=== PATIENT | male | born 1950 | race Caucasian/White ===

== ENCOUNTER 2024-05-23 10:03 | Observation (INO) ==
--- NOTE | 2024-04-16 13:05 | PAT Medication Instructions ---
Medication Instructions Date of Service April 16, 2024 Home Medications Medication Instructions Recorded hydrochlorothiazide 25 mg tablet 25 mg PO QAM #90 tabs 08/07/23 famotidine 20 mg tablet 20 mg PO QAM #90 tabs 03/27/24 (Zantac-360 (famotidine)) tramadol 50 mg tablet 100 mg (2 x 50 mg) PO BID PRN pain 03/31/24 #120 tabs melatonin 5 mg tablet 10 mg PO HS ibuprofen 200 mg tablet (Advil) 200 mg PO Q6H PRN Pain diphenhydramine HCl 25 mg capsule (Benadryl) 25 mg PO HS hydrochlorothiazide 25 mg tablet 25 mg PO QAM famotidine 20 mg tablet (Zantac-360 (famotidine)) 20 mg PO QAM tramadol 50 mg tablet 100 mg (2 x 50 mg) PO BID PRN pain ezetimibe 10 mg tablet (Zetia) 10 mg PO QPM glucosamine sulf dipot chlr,msm,chond 550 mg-C 30 mg-millicent 1 mg capsule (Glucosamine Chondroitin) 1 cap PO QAM lisinopril 40 mg tablet 40 mg PO QAM prednisone 10 mg tablet 10 mg PO Q2D Continue as directed prednisone 10 mg tablet 10 mg PO Q2D ASK your surgeon for instructions ibuprofen 200 mg tablet (Advil) 200 mg PO Q6H PRN Pain STOP taking 2 weeks before surgery glucosamine sulf dipot chlr,msm,chond 550 mg-C 30 mg-millicent 1 mg capsule (Glucosamine Chondroitin) 1 cap PO QAM DO NOT take the morning of surgery hydrochlorothiazide 25 mg tablet 25 mg PO QAM lisinopril 40 mg tablet 40 mg PO QAM Take morning of surgery With a small sip of water, OTHERWISE NOTHING TO EAT OR DRINK AFTER MIDNIGHT: famotidine 20 mg tablet (Zantac-360 (famotidine)) 20 mg PO QAM tramadol 50 mg tablet 100 mg (2 x 50 mg) PO BID PRN pain (if needed) Take evening before surgery melatonin 5 mg tablet 10 mg PO HS diphenhydramine HCl 25 mg capsule (Benadryl) 25 mg PO HS tramadol 50 mg tablet 100 mg (2 x 50 mg) PO BID PRN pain (if needed) ezetimibe 10 mg tablet (Zetia) 10 mg PO QPM Other Notes If you have any questions please call us at [phone] or [phone] or [phone] or [phone]
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
[~2024-05-23 10:03] MED LIST: BUPIVACAINE 0.5 % 5 MG/1 ML PF 10ML VIAL ONE; MIDAZOLAM HCL 1 MG/ML 2ML VIAL ONE; fentaNYL citrate PF 100 MCG/2 ML VIAL ONE
[2024-05-23] MEDS: LR 60ML/HR IV SCH (11:05)
[2024-05-23] MEDS: LR 15ML/HR IV SCH (11:39)
[2024-05-23] MEDS: ACETAMINOPHEN 500 MG TAB PO SCH (11:39)
[2024-05-23] MEDS ORDERED: ePHEDrine sulfate 50 MG/ML AMP IV PRN (12:05)
[2024-05-23] MEDS ORDERED: HYDROmorphone INJ 1 MG/ML SYRINGE IV PRN (12:05)
[2024-05-23] MEDS ORDERED: ATROPINE SULFATE 0.1 MG/ML 10ML SYR IV PRN (12:05)
--- NOTE | 2024-05-23 12:36 | History & Physical Bridge Note ---
Date of Service May 23, 2024 History & Physical Bridge Note I have examined the patient, reviewed the History & Physical and in the interval since the performance of the History & Physical I have noted the following changes of clinical significance: no changes noted
[2024-05-23] MEDS: TRANEXAMIC ACID 1,000 MG **IV Pre-op IV SCH (12:42)
[2024-05-23] MEDS: ceFAZolin 2000MG 2,000 MG/15 ML SYR IV SCH ×2 (13:06→20:28)
[2024-05-23] MEDS ORDERED: HYDROCORTISONE SOD SUCCINATE 100 MG/2 ML VIAL ONE (13:51)
[2024-05-23] MEDS ORDERED: ePHEDrine sulfate 50 MG/5 ML SYR ONE (14:15)
[2024-05-23] MEDS ORDERED: PROPOFOL IV EMULSION 10 MG/ML 20 ML VIAL IV ONE (14:16)
[2024-05-23] MEDS ORDERED: ROCURONIUM BROMIDE 10 MG/ML 5 ML VIAL IV ONE (14:18)
[2024-05-23] MEDS ORDERED: LIDOCAINE 2% 2 ML VIAL/AMP(20MG/ML) INFIL ONE (14:18)
[2024-05-23] MEDS ORDERED: SUGAMMADEX SODIUM 200 MG/2 ML VIAL IV ONE (14:19)
[2024-05-23] MEDS ORDERED: PHENYLEPHRINE HCL 10 MG/ML VIAL ONE (15:42)
[2024-05-23] MEDS: VANCOMYCIN HCL 1000MG/20ML VIAL ONE (15:44)
[2024-05-23] MEDS: TRANEXAMIC ACID 1,000 MG **IV Intra-op IV SCH (16:18)
[2024-05-23] MEDS ORDERED: HYDROmorphone INJ 0.5 MG/0.5 ML SYR IV PRN (16:42)
[2024-05-23] MEDS ORDERED: MAGNESIUM HYDROXIDE SUSP 30 ML UDC PO PRN (16:42)
[2024-05-23] MEDS ORDERED: ONDANSETRON INJ 2 MG/ML 2 ML VIAL IV PRN (16:42)
[2024-05-23] MEDS ORDERED: ACETAMINOPHEN 1,000 MG/100 ML VIAL IV PRN (16:42)
[2024-05-23] MEDS ORDERED: diphenhydrAMINE Capsule 25 MG CAP PO PRN (16:42)
[2024-05-23] MEDS ORDERED: NALOXONE HCL 0.4 MG/1 ML VIAL/CARP IV PRN (16:42)
[2024-05-23] MEDS ORDERED: bisacodyL 10 MG SUPP PR PRN (16:42)
[2024-05-23] MEDS ORDERED: METOCLOPRAMIDE HCL INJ 5 MG/ML 2 ML VIAL IV PRN (16:42)
--- NOTE | 2024-05-23 16:52 | Operative Report ---
PG Post Operative Report Pre & Post Diagnosis Operation Date: 05/23/24 11:50 Pre-Op Diagnosis: Arthritis of Right Glenohumeral Joint, biceps tendinopathy Post-Op Diagnosis: Arthritis of Right Glenohumeral Joint, biceps tendinopathy I identified the patient and participated in the time-out.: Yes Procedure Operation Date: 05/23/24 11:50 Actual Procedures p Right Reverse Total Shoulder Arthroplasty, Biceps Tenodesis(Right) - Marcel Sigala MD Surgeon Marcel Sigala MD Chyron Operator Maide Vallejo PA-C Estimated Blood Loss 100 Findings See Below [employer] comprehensive reverse shoulder arthroplasty was performed: Stem17 mm micro, baseplate large augmented superior, [id number] mm standard, humeral tray40 mm standard +0 offset, poly36 mm +3, central screw 6.5 mm x 30 mm, all locking peripheral screws 4.75 x 15 mm, 4.75 x 25 mm, 4.75 x 35 mm, and 4.75 x 20 mm EXAMINATION UNDER ANESTHESIA: Preoperative exam under anesthesia revealed the followin degrees of forward flexion, 30 degrees external rotation at the side, 90 degrees of abduction, 30 degrees of external rotation and 10 degrees of internal rotation with the arm abducted. Postoperatively, range of motion parameters after implantation of prosthesis revealed a stable prosthesis with range of motion parameters as follows: 130 of forward flexion, 60 of external rotation at the side, 110 of abduction, 90 of external rotation with the arm abducted, 20 of internal rotation with the arm abducted. The patient's safe range of motion included the ability to get to the back of her head. Internal rotation to the belly without significant tension. Specimens Humeral head for pathology Drains none Anesthesia Type General Regional Complications none Disposition Accompanied Patient To Recovery: No Disposition: Recovery Room Description of Procedure The patient was identified in the preoperative holding area. The operative extremity was marked. Regional block was administered by Anesthesia. The patient was then brought to the operating room and placed supine. Preliminary time-out procedure was performed. All were in agreement. General endotracheal anesthesia was induced without any issues. The patient was sat up in around 40-45 degrees of inclination in the beachchair position. Exam under anesthesia was performed confirming the above findings. Preoperative antibiotics were administered. TXA was administered. Sequential compressive devices were placed on her bilateral lower extremities for DVT prophylaxis. Bony prominences were inspected, well-padded and free of any evidence for peripheral nerve compression. The operative upper extremity was then prepped and draped in a normal standard fashion, with use of the padded Pugh stand. Prior to incision, a second time- out procedure was performed confirming the patient, site, laterality and the procedure. All were in agreement. 1. Right shoulder open reverse total shoulder replacement with augmented glenoid baseplate with patient specific guide: A deltopectoral incision was utilized. Incision was carried out sharply and with electrocautery through the skin and subcutaneous tissues. The deltopectoral interval was developed. The cephalic vein was taken laterally. Subdeltoid space was developed bluntly. A deltoid brown retractor was placed to retract the deltoid laterally and superiorly. 1 cm of the superior border of the pectoralis major tendon insertion site was released in standard fashion to improve exposure. Clavipectoral fascia was removed with electrocautery. Extensive subacromial bursitis was encountered and this was completely removed with a Bovie. The lateral aspect of the conjoined tendon was then followed to its insertion site on the coracoid. The conjoined tendon was retracted medially. The biceps tendon was identified, enlarged consistent with tendinopathy. It was released from the sheath using a Bovie and followed up into the rotator interval. A tenodesis was performed to the pectoralis major tendon as will be discussed in further detail below. A sharp Hohmann retractor was then placed into the interval and into the joint. Subscapularis tendon was still present and attached on the lesser tuberosity. The articular surface of the humeral head could be appreciated. The subscapularis tendon was then tagged with #5 Ti-Cron sutures to gain control. The capsule with the subscapularis tendon was then released up the inferior humeral neck as one layer. The humeral head dislocated with successive extension and external rotation. Visualization of the humeral head revealed significant osteoarthritis and wear. The supraspinatus was absent. The greater tuberosity footprint was bare. The top of the humeral head was identified. A starting awl was used sound the humeral canal. The bone quality was moderate. We opted to set the retroversion of the humeral cut at around 30 degrees of retroversion to match [place] retroversion. The humeral head resection was then made in parallel fashion using the cutting guide. Sequential reaming was carried out up to a size 17 as the maximal stem size. Successive trial broaches were then broached up to a this reamer size, which gave us excellent press-fit. The trial stem was left in place. The metal manhole cover Was then placed to protect this cut surface during retraction for the glenoid. We then proceeded over to glenoid. An anterior glenoid neck retractor was placed. The MGHL and SGHL were released off of the muscular portion of the subscapularis being mindful of palpating and identifying the axillary nerve to make sure it was free of injury during releases. Next, the interval between the IGHL and the muscular portions of the subscapularis was identified. My finger was on the axillary nerve to protect it during releases. The IGHL was then released up to around the 7 o'clock position. A blunt retractor was then placed to retract the humerus posteriorly. A sharp Hohmann retractor was placed at the 12 o'clock position. The glenoid deformity was evaluated with assistance with the bone model. Extraneous capsulolabral tissue was dissected to reveal the bone anatomy. This confirmed our decision to proceed with preoperative virtual planning. The arm was placed around 30 degrees of flexion, 90 degrees of external rotation and 30 degrees of abduction to distract the humerus posteriorly. Labrum was circumferentially removed including the biceps tendon stump with a Bovie. A patient specific guide was used to place an initial guide pin, followed by the more superior pin. The patient specific guide was then removed. The custom reamer guide was placed on the superior pin and the reamer was brought down the central pin. Reaming was conducted based on the guide. Irrigation was used and we confirmed adequate reaming. The base protector was then fastened with a screw to protect the surface from the augment reamer. The augment reamer sufficiently removed the cartilage surface according to the preoperative plan. Copious irrigation was performed to irrigate out the joint. The planned glenoid baseplate and central threaded screw was then placed with excellent capture. Four peripheral locking screws were placed. The final construct appeared to be extremely strong as the entire glenoid and scapula moved together as one unit confirming excellent fixation of the baseplate. The trial glenosphere was placed to assess the offset needs. Next, the planned glenosphere was confirmed, opened, and set for offset on the back table. The glenosphere was then seated into the baseplate and impacted onto the johnson taper. A cornejo was used to test fixation, before resetting with additional malleting. The joint was then co piously irrigated. Humerus was then brought back into view with external rotation, deltoid brown retractor and multiple blunt Homans. A trial tray was then placed that would best accommodate the anatomy. The humerus was then reduced onto the glenoid with the arm in abduction and external rotation. The reduction was fairly easily and it felt that there was too much to be the right size. I upsized by 3 mm on the poly. This trial was then placed. The arm was taken through a physiologic range of motion. No evidence for impingement until extreme abduction and external rotation. There was some posterior humeral head osteophyte remained. This was resected using a rongeur. No evidence for kick off. No shuck. Thus, the trials would be a most appropriate for stability. The trial humeral component was removed. The final stem prosthesis was then brought onto the field. Final tray insert as well as the poly components were opened. Humeral canal was copiously irrigated. The final humeral component was then brought back on to the field and seated firmly into the humerus. Excellent press-fit was achieved. Final tray and polyethylene were then tamped onto the Johnson taper with excellent purchase. Fixation was tested manually. This completed the humeral component implantation. With the final components in place, humeral component was then reduced onto the glenosphere and final postoperative range of motion assessment was performed. Stability confirmed. This completed the open reverse total shoulder replacement. 2. Open biceps tenodesis: As dictated above, enlargement of the biceps tendon was noted consistent with tendinopathy. A tenodesis was opted. The tendon was released from the bicipital sheath using a Bovie and then tenodesed to the pectoralis major tendon using two #2 Fiberwire sutures in [id number] fashion. The tendon was then followed up as proximal as could be visualized and then tenotomized. Remaining stump was removed just proximal to the tenodesis site. This completed the open biceps tenodesis. The wound was copiously irrigated. The deltopectoral incision was closed with continuous #1 Vicryl suture. Subcutaneous tissues were closed with 0 and 2-0 Vicryl suture in buried interrupted fashion. The skin was closed with gennaro. The wound was dressed with xeroform, gauze, and ABD, contained by Fiorella. The patient was placed in a standard sling and turned over to the anesthesia team. The patient tolerated procedure well, was extubated in the operating room without complication, and transferred to the PACU in stable condition. DISPOSITION: The patient will remain in sling for a total of 4 weeks. Hand, wrist, and elbow range of motion exercises may be initiated. Formal therapy will be initiated starting with gentle active assisted range of motion. No strengthening will be permitted before 12 weeks. Physician prosthetics assistant attestation: Madie Vallejo PA-C was present and scrubbed for the duration of the case. Skilled assistance was essential to prepping/draping, patient positioning, retraction, and wound closure. I attest to the content of the Intraoperative Record and any orders documented therein. Any exceptions are noted below.
[2024-05-23] MEDS: fentaNYL citrate PF 100 MCG/2 ML VIAL IV PRN (17:07)
[2024-05-23] MEDS: ONDANSETRON INJ 2 MG/ML 2 ML VIAL IV PRN (17:13)
--- NOTE | 2024-05-23 17:20 | XRay Report ---
XR shoulder RT min 2V routine CLINICAL HISTORY: s/p right shoulder arthroplasty TECHNIQUE: 3 views of the right shoulder were obtained. Comparison: None available at the time of this dictation. FINDINGS: Patient is status post shoulder arthroplasty with expected postsurgical changes including soft tissue swelling and subcutaneous emphysema. No periarticular lucency or hardware fracture is seen. IMPRESSION: Expected postoperative appearance status post placement of shoulder arthroplasty. ACT 112: Negative or not required by law. Electronically signed by: Jaime Rodrigues M.D. 05/23/2024 5:19 PM
--- NOTE | 2024-05-23 17:28 | Anesthesiology Progress Note ---
Date of Service May 23, 2024 Anesthesia Post Procedure Vital Signs Vital Signs: Temp Pulse Resp BP Pulse Ox O2 Del Method O2 Flow Rate 05/23/24 17:25 69 17 145/71 H 96 Nasal Cannula 2 05/23/24 17:15 64 16 143/74 H 95 Nasal Cannula 2 05/23/24 17:05 67 17 131/70 93 Room Air 05/23/24 16:55 65 12 132/75 96 Room Air 05/23/24 16:45 64 17 142/72 H 98 Room Air 05/23/24 16:36 36.0 C L 67 16 155/78 H 99 Oxymask 8 05/23/24 10:47 36.7 C 62 20 133/86 99 Room Air Pain Intensity Right Shoulder: Pain Intensity: 4 Transfer of Care Handoff Completed per policy Notes Mental Status: alert / awake / arousable and participated in evaluation Patient Amnestic to Procedure: Yes Nausea / Vomiting: adequately controlled Pain: adequately controlled Airway Patency, RR, SpO2: stable & adequate BP & HR: stable & adequate Hydration State: stable & adequate Anesthetic Complications: no major complications apparent and Pt Satisfied with anesthetic care
[2024-05-23] MEDS ORDERED: IBUPROFEN 200 MG TAB PO PRN (17:55)
[2024-05-23] MEDS ORDERED: traMADol HCL 50 MG TABLET PO PRN (17:55)
[2024-05-23] MEDS: SODIUM CHLORIDE 0.9% 1,000 ML IV SCH (17:59)
[2024-05-23] MEDS: SENNA 8.6 MG TAB PO SCH (20:28)
[2024-05-23] MEDS: DOCUSATE SODIUM 100 MG CAP PO SCH (20:29)
[2024-05-23] MEDS: EZETIMIBE 10 MG TAB PO SCH (20:29)
[2024-05-23] MEDS: diphenhydrAMINE Capsule 25 MG CAP PO SCH (22:17)
[2024-05-23] MEDS: MELATONIN 3 MG TAB PO SCH (22:17)
[2024-05-24] MEDS: oxyCODONE HCL IR 5 MG TAB (IMMEDIATE RELEASE) PO PRN (03:55)
[2024-05-24] MEDS: lisinopril 40 MG TAB PO SCH (07:57)
[2024-05-24] MEDS: hydroCHLOROthiazide 25 MG TAB PO SCH (07:57)
[2024-05-24] MEDS: predniSONE 10 MG TABLET PO SCH (07:57)
[2024-05-24] MEDS: FAMOTIDINE 20 MG TAB PO SCH (07:58)
[2024-05-24] MEDS ORDERED: NON-FORMULARY MEDICATION (Glucos Sul 2kcl-Msm-Chond-C-Mn [Glucosamine Chondroitin] 550-30- PO SCH (09:00)
--- NOTE | 2024-05-24 09:19 | Discharge Summary ---
Date of Service May 24, 2024 Admission HPI (Per Admitting) 74-year-old male admitted for reverse shoulder replacement from longstanding symptoms of pain and loss of motion from right glenohumeral arthritis with significant glenoid deformity. He is also been treated for bicep tendinopathy. He wants to proceed with surgery that we have considered for some time. Admission Exam (Per Admitting) Right shoulder: No overlying skin lesions. Exam is unchanged. Constitutional WD/WN, vitals as above Respiratory normal respiratory effort; no respiratory distress Cardiovascular Extremities: normal capillary refill; no edema Chest (Breasts) Chest: normal inspection of chest Skin no rashes, warm and dry Psychiatric A+Ox3, euthymic affect Principal Diagnosis Same as "Discharge Diagnosis" noted below under Discharge Instructions. Discharge Exam RUE: Intact weak motor to the digits with partial sensation returning from the block. No sensation proximal to the elbow. Well-perfused. Dressing is clean and dry and intact. Constitutional WD/WN, vitals as above Respiratory normal respiratory effort; no respiratory distress Cardiovascular Extremities: normal capillary refill; no edema Chest (Breasts) Chest: normal inspection of chest Skin no rashes, warm and dry Psychiatric A+Ox3, euthymic affect Discharge Data Procedures Performed Operation Date: 05/23/24 11:50 Actual Procedures p Right Reverse Total Shoulder Arthroplasty, Biceps Tenodesis(Right) - Marcel Sigala MD Ordered Studies 05/23/24 05:00 US - OR guided needle placemen Routine Hospital Course (1) History of right shoulder replacement: (2) Tendinopathy of right biceps tendon: (3) Arthritis of right glenohumeral joint: Plan Admitted postoperatively to ensure performance of ADLs with PT and OT. On postop day 1 he was found to have controllable pain and ability to take care of himself. He was discharged to outpatient care with ongoing therapy. PG Care Time/CCT Total # of Minutes Spent Total Time Spent with Patient: Total time spent is greater than 50% in coordination of care (as documented) at patient's floor/unit and/or counseling patient: Discharge Plan Discharge Items Patient Disposition: Home - Self-Care Reason For Visit: Arthritis of Right Glenohumeral Joint, Arthropathy Discharge Diagnosis: Right shoulder arthritis and biceps tendinopathy Activity: Per Instructions section Non-emergency contact: Surgeon Call non-emergency contact if: you have any medication questions, your pain is not controlled and your temperature is above 101 Follow-up/Referrals: Verona John MD [Primary Care Provider] - Marcel Sigala MD [Surgeon] - Diet: Regular Addtl Attending Provider Instructions: Marcel Sigala M.D. [facility] [address], [place] [address] POSTOPERATIVE DISCHARGE INSTRUCTIONS SHOULDER ARTHROPLASTY Dressing Care: Leave the dressing in place for 3 days. After 3 days you may remove the dressing. If the incision is not draining, you do not have to re-cover the dressing. Sloan will be removed at your postop appointment. If there is a little bit of drainage or if the wound is bothersome with your clothing, cover the incision with a dry dressing. Do not use any ointments or topical medications unless directed by your surgeon. Do not submerse the incisions in water no pools, oceans, lakes, jacuzzis, bathtubs, etc for at least 3 weeks. Showering: After 3 days you may remove the dressing and shower normally. Allow soap and water to run over the incision and pat dry. Do not scrub or soak the incision. Activity and Therapy Recommendations: - If you are not using home therapy then Outpatient Physical Therapy should start about 3-5 days from your day of surgery. Therapy will last about 8-12 weeks. This can be set up on Sunday. - Wear your sling for 3 weeks, unless otherwise instructed. You may remove your sling to shower and to dress. You may rest out of sling, but it should be in place when you are up and moving around. - The shoulder replacement is very stable and you can use your hand while in the sling - You were shown a series of exercises in the hospital. Do these exercises daily including the exercises you were shown in physical therapy. - NO EXTERNAL ROTATION - do not reach out to your side. Pain Control: Use frequent ice to reduce amount of pain medications. Use for 30 minutes per hour. Do not leave in place longer than 30 minutes, especially when your block is in effect, to prevent frostbite or thermal injury. MEDICATIONS: 1. Antibiotic (Cedroxil): one tablet (500mg) twice daily for 10 days. 2. Opioid: Oxycodone (OxyIR) 1-2 tablet(s) orally every 4 hours for pain as needed. Use with Tylenol. Begin tapering OxyIR as soon as possible: reduce from 2 to 1 pills per dose, then spread out the doses over greater time intervals, then try to use only for therapy or for comfort while sleeping. Continue to use regular Tylenol until pain subsides. 3. Tylenol (325mg): 3 tablets every 8 hours orally. Regular dosing of Tylenol is an important part of your baseline pain control. Do not taper Tylenol until you have successfully tapered off of regular OxyIR. Do not take more than 3000mg of Tylenol per day. 4. Zofran 1 tablet orally every 6 hours as needed for nausea related to anesthesia, pain, and narcotic medications OVER THE COUNTER: Narcotics will cause constipation. Colace and or Miralax can help while you are taking oxycodone or other narcotics. 5. Colace (100mg): take 1-2 tabs twice daily to avoid constipation from OxyIR or other narcotics. 6. Miralax 1 tablespoon in a glass of water 2 times daily until normal bowel movements - Other medications may be prescribed for specific circumstances. If you have any questions, please call the office at . - Resume previous home medications unless otherwise instructed Follow-Up: 1. Ortho Clinic with Dr. Nolasco: You should be seen in 10-14 days. Please call immediately to schedule if you do not have an appointment. Pending Studies at Discharge: No Stand-Alone Forms: My [facility], Smoking Cessation Medications and DC Order Prescriptions: New cefadroxil 500 mg capsule 500 mg PO BID 10 Days Qty: 20 0RF ondansetron 4 mg tablet,disintegrating 4 mg PO Q6H PRN (Reason: nausea and vomiting) Qty: 10 0RF oxycodone 5 mg tablet 5 - 10 mg PO Q4H MDD 6 tablets PRN (Reason: pain) Qty: 20 0RF Continued hydrochlorothiazide 25 mg tablet 25 mg PO QAM Qty: 90 3RF famotidine [Zantac-360 (famotidine)] 20 mg tablet 20 mg PO QAM Qty: 90 1RF tramadol 50 mg tablet 100 mg PO BID PRN (Reason: pain) Qty: 120 0RF lisinopril 40 mg tablet 40 mg PO QAM Qty: 90 1RF melatonin 5 mg tablet 10 mg PO HS diphenhydramine HCl [Benadryl] 25 mg capsule 25 mg PO HS ibuprofen [Advil] 200 mg Tablet 200 mg PO Q6H PRN (Reason: Pain) Rx Instructions: *has to be the Coated tablets* Glucosamine Chondroitin 550-30-1 mg Capsule 1 cap PO QAM prednisone 10 mg tablet 10 mg PO Q2D ezetimibe [Zetia] 10 mg tablet 10 mg PO QPM Discharge Orders: Discharge Order (Routine); Ordered 05/24/24 Ordered By: Marcel Sigala Admission Data Admit Date/Time: 05/23/24 16:42 Attending Provider: Marcel Sigala Admit Provider: Marcel Sigala Primary Care Provider: Verona John
== END 2024-05-24 10:56 | disposition home or self-care (01) ==
LOC: 3E 10:03 → ASU 10:03

== ENCOUNTER 2025-06-10 06:42 | Observation (INO) ==
--- NOTE | 2025-05-29 15:07 | PAT Medication Instructions ---
Medication Instructions Date of Service May 29, 2025 Home Medications Medication Instructions Recorded hydrochlorothiazide 25 mg tablet 25 mg PO QAM #90 tabs 07/25/24 ezetimibe 10 mg tablet (Zetia) 10 mg PO QPM #90 tabs 09/04/24 lisinopril 40 mg tablet 40 mg PO QAM #90 tabs 02/23/25 famotidine 20 mg tablet 20 mg PO QAM #90 tabs 03/16/25 (Zantac-360 (famotidine)) prednisone 10 mg tablet 10 mg PO Q2D #15 tabs 03/16/25 tramadol 50 mg tablet 50 mg PO Q8H PRN pain #90 tabs 05/29/25 melatonin 5 mg tablet 10 mg PO HS ibuprofen 200 mg tablet (Advil) 400 mg PO UD PRN Pain diphenhydramine HCl 25 mg capsule (Benadryl) 50 mg PO HS glucosamine sulf dipot chlr,msm,chond 550 mg-C 30 mg-millicent 1 mg capsule (Glucosamine Chondroitin) 1 cap PO QAM hydrochlorothiazide 25 mg tablet 25 mg PO QAM ezetimibe 10 mg tablet (Zetia) 10 mg PO QPM docusate sodium 100 mg tablet (Stool Softener) 200 mg PO BID lisinopril 40 mg tablet 40 mg PO QAM famotidine 20 mg tablet (Zantac-360 (famotidine)) 20 mg PO QAM prednisone 10 mg tablet 10 mg PO Q2D tramadol 50 mg tablet 50 mg PO Q8H PRN pain Continue as directed prednisone 10 mg tablet 10 mg PO Q2D ASK your surgeon for instructions ibuprofen 200 mg tablet (Advil) 400 mg PO UD PRN Pain STOP taking 2 weeks before surgery (or as soon as possible) glucosamine sulf dipot chlr,msm,chond 550 mg-C 30 mg-millicent 1 mg capsule (Glucosamine Chondroitin) 1 cap PO QAM DO NOT take the morning of surgery hydrochlorothiazide 25 mg tablet 25 mg PO QAM docusate sodium 100 mg tablet (Stool Softener) 200 mg PO BID lisinopril 40 mg tablet 40 mg PO QAM Take morning of surgery With a small sip of water, OTHERWISE NOTHING TO EAT OR DRINK AFTER MIDNIGHT: famotidine 20 mg tablet (Zantac-360 (famotidine)) 20 mg PO QAM tramadol 50 mg tablet 50 mg PO Q8H PRN pain (if needed) Take evening before surgery melatonin 5 mg tablet 10 mg PO HS diphenhydramine HCl 25 mg capsule (Benadryl) 50 mg PO HS ezetimibe 10 mg tablet (Zetia) 10 mg PO QPM docusate sodium 100 mg tablet (Stool Softener) 200 mg PO BID tramadol 50 mg tablet 50 mg PO Q8H PRN pain (if needed) Other Notes If you have any questions please call us at [phone] or [phone] or [phone] or [phone]
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
[~2025-06-10 06:42] MED LIST changes: -BUPIVACAINE 0.5 % 5 MG/1 ML PF 10ML VIAL ONE; -MIDAZOLAM HCL 1 MG/ML 2ML VIAL ONE; +PROPOFOL IV EMULSION 10 MG/ML 100 ML VIAL IV ONE; -fentaNYL citrate PF 100 MCG/2 ML VIAL ONE
[2025-06-10] MEDS: ACETAMINOPHEN 500 MG TAB PO SCH ×2 (07:15→14:02)
[2025-06-10] MEDS: METOCLOPRAMIDE HCL 10 MG TABLET PO SCH (07:15)
[2025-06-10] MEDS: LR 60ML/HR IV SCH (07:15)
[2025-06-10] MEDS: LR 500ML BOLUS, THEN 15ML/HR IV SCH (07:16)
[2025-06-10] MEDS: dexAMETHasone**PF** 10 MG/ML VIAL IV SCH (07:16)
[2025-06-10] MEDS: CeleBREX 200 MG CAP PO SCH (07:16)
[2025-06-10 07:17] LABS: Anion Gap 3.0 (3-11); Blood Urea Nitrogen 27.0 mg/dl (6-23); Calcium 8.9 mg/dl (8.6-10.3); Carbon Dioxide 24.0 mmol/L (21-32); Chloride 111.0 mmol/L (98-107); Creatinine Clr Calc Pharmacy 37.6 ml/min; Glucose 99.0 mg/dl (70-99(Fasting)); Potassium 4.3 mmol/L (3.5-5.1); Sodium 138.0 mmol/L (136-145)
[2025-06-10] MEDS: FAMOTIDINE 20 MG TAB PO SCH (07:17)
[2025-06-10] MEDS ORDERED: BUPIVACAINE 0.5 % 5 MG/1 ML PF 10ML VIAL ONE (07:23)
[2025-06-10] MEDS ORDERED: ROPIVACAINE 0.5% 5 MG/ML 30 ML VIAL ONE (07:23)
[2025-06-10] MEDS ORDERED: HYDROmorphone INJ 2 MG/ML SYR/VIAL IV PRN (07:57)
[2025-06-10] MEDS ORDERED: HYDROmorphone INJ 1 MG/ML SYRINGE IV PRN (07:57)
[2025-06-10] MEDS ORDERED: ONDANSETRON INJ 2 MG/ML 2 ML VIAL IV PRN ×2 (07:57→12:52)
[2025-06-10] MEDS ORDERED: ATROPINE SULFATE 0.1 MG/ML 10ML SYR IV PRN (07:57)
[2025-06-10] MEDS ORDERED: MIDAZOLAM HCL 1 MG/ML 2ML VIAL ONE (08:01)
--- NOTE | 2025-06-10 09:03 | History & Physical Bridge Note ---
Date of Service June 10, 2025 History & Physical Bridge Note I have examined the patient, reviewed the History & Physical and in the interval since the performance of the History & Physical I have noted the following changes of clinical significance: no changes noted
[2025-06-10] MEDS ORDERED: LIDOCAINE 2% 2 ML VIAL/AMP(20MG/ML) INFIL ONE (09:50)
[2025-06-10] MEDS: ROPIV 0.5% 246mg, Ketorolac 30mg, EPINEPHrine 0.5mg in NSS INFIL SCH (10:01)
[2025-06-10] MEDS: ORTHO JOINT ANESTHETIC ONE (10:01)
[2025-06-10] MEDS ORDERED: GLYCOPYRROLATE 0.2 MG/ML VIAL ONE (10:09)
[2025-06-10] MEDS ORDERED: PHENYLEPHRINE 100MCG/ML 5ML SYR ONE (10:14)
[2025-06-10] MEDS ORDERED: PHENYLEPHRINE HCL 10 MG/ML VIAL ONE (10:16)
[2025-06-10] MEDS ORDERED: PROPOFOL IV EMULSION 10 MG/ML 20 ML VIAL IV ONE (11:13)
--- NOTE | 2025-06-10 11:39 | Operative Report ---
PG Post Operative Report Pre & Post Diagnosis Operation Date: 06/10/25 08:50 Pre-Op Diagnosis: Left Knee Osteoarthritis Post-Op Diagnosis: Left Knee Osteoarthritis I identified the patient and participated in the time-out.: Yes Procedure Operation Date: 06/10/25 08:50 Actual Procedures p Left Total Knee Arthroplasty(Left) - Keon Santiago MD Surgeon Keon Santiago MD Tractor Trailer Mechanic Andrea Vu PA-C Estimated Blood Loss 100 Findings Consistent with Post-Op Diagnosis Operative findings revealed a small knee joint effusion. He did have some focal grade 4 changes of the medial femoral condyle, lateral femoral condyle area as well as the patellofemoral joint. He did not have extensive eburnation or full- thickness cartilage loss throughout. Specimens Left knee sent for pathology. Anesthesia Type Spinal MAC Complications none Disposition Accompanied Patient To Recovery: No Indications The patient 75-year-old gentleman with a long history of multiple orthopedic issues over the years. He developed bilateral knee pain discomfort describes gotten worse over time. He has a history of a previous left ankle fusion. Both knees are hurting but the left side bothered with the right. He failed conservative care. He elected proceed with a left total knee arthroplasty. Description of Procedure Operative implants consist of: 1 Biomet Vanguard size 72.5 left posterior stabilized femoral component. 2. Biomet size 79 tibial tray. 3. 10 mm posterior stabilized polyethylene insert. 4. 31 x 8 all poly patella. The patient was taken to the operating, identified, placed on the operating table in the supine position. All conductors were appropriately padded. IV antibiotics fibra anesthesia team. A spinal anesthetic and adductor canal block had been Weida in the holding area. A left thigh tourniquet was then placed. Left lower extremity was then prepped and draped in usual sterile fashion. The left leg was elevated exsanguinated with use of an Esmarch and a turn was placed 300 mmHg. An anterior approach to the left knee was then performed to longitudinal incision centered over the patella. Sharp dissection was carried through subcutaneous tissue down the extensor mechanism. A medial parapatellar arthrotomy incision was made. Some subperiosteal dissection was carried out medially. The fat pad was resected from Neath patella tendon. The lateral patellofemoral ligament was released. The patella was subluxated laterally and the knee was flexed. The osteophytes taken off distal femur. The ACL PCL then released from the distal femur. The external tibial alignment jig was then placed in the anterior face of the tibia and adjusted 12 mm medially. The proximal tibial cut was made to move about a millimeter to a bone from the m edial side. Tibia sized to a size 79. Attention drawn the femur. The distal femur examined the sharp drill. Intramedullary canal was suction. The left 6 degree valgus cutting guide was placed. Distal femoral cutting block was pinned in place. This femoral cut was made taking additional 3 mm of bone off distal femur. The femur was then sized to a size 72.5. The AP cutting block was pinned parallel to the epicondylar axis which was 4 degrees of external rotation. Anterior cut, anterior chamfer, posterior cut, posterior chamfer cuts were made. The box cutting guide was placed and just slight lateral and the box cut was made. The knee was flexed. The remnants of the medial and lateral menisci were excised. The osteophytes were taken off the posterior aspect of the femur. A trial femoral component was placed. The tibial tray was pinned in Kelin external rotation and the drill and stem punch were used to create defect in the proximal tibia for the tibial tray. The knee was then trialed and the 10 mm insert fit most appropriately. Attention was then drawn the patella. The patella was cleaned of all soft tissues. Patella thickness measured 25 mm in thickness was cut down to 15. Was sized to a size 31 patella. The lug holes were drilled for 31 patella. The lateral osteophytes removed. Patella button was placed. Knee was taken through range of motion patella tracked nicely with no thumbs test. Attention was then drawn to placement of permanent components. NuPrep all trial components removed. Bone plug was placed into the distal femur limit blood loss. Double batch Palacos G cement was mixed. A Biomet Vanguard size 72.5 left posterior stabilized femoral component, size 79 tibial tray, a 10 mm posterior stabilized polyethylene insert, and a 31 x 8 all poly patella then cemented in place. The knee was brought out into full extension till cement hardened. Final cement check was then performed. Pericapsular tissues were injected with total of 100 cc of Ortho mix. Patient did receive 1 g tranexamic acid. The tourniquet was then let down for final tourniquet time of 62 minutes. Hemostasis assured use electrocautery. Extensor Meclomen then closed combination 1 PDS suture #1 Vicryl suture in [id number] fashion. Extensor Meclomen checked found to be intact. The subcutaneous tissue then closed with 2 Dexon suture in a buried interrupted fashion skin was closed skin gennaro. Leg was then cleaned and dried and a sterile dressing with Xeroform, 4 fours, sterile cast padding, Jerome bandage applied. [facility] then transferred to [facility] very room in stable condition. Patient tolerated the procedure well and there were no complications. Andrea Vu, my physician warehouse assistant, was present for the entire procedure. His assistance was required for proper patient positioning, prepping and draping, surgical exposure, retraction, perform the technical details of the operation, placement of the implants, closure of the incision site, and placement of postoperative sterile bandage. I attest to the content of the Intraoperative Record and any orders documented therein. Any exceptions are noted below.
--- NOTE | 2025-06-10 11:54 | XRay Report ---
XR knee LT 1 or 2V routine CLINICAL HISTORY: Surgical Post Op COMPARISON: None FINDINGS: Left knee prosthesis shows no hardware complication. There is expected soft tissue gas. Sk in gennaro are present. IMPRESSION: Unremarkable postoperative exam. ACT 112: Negative or not required by law. Electronically signed by: Dada Sandoval M.D. 06/10/2025 11:53 AM
--- NOTE | 2025-06-10 12:12 | Anesthesiology Progress Note ---
Date of Service June 10, 2025 Anesthesia Post Procedure Vital Signs Vital Signs: Temp Pulse Resp BP Pulse Ox O2 Del Method 06/10/25 12:10 73 16 109/81 97 Room Air 06/10/25 12:00 74 18 122/58 L 96 Room Air 06/10/25 11:50 71 17 120/60 95 Room Air 06/10/25 11:40 79 17 113/54 L 99 Room Air 06/10/25 11:30 36.2 C L 81 17 106/53 L 99 Room Air 06/10/25 07:03 36.6 C 81 20 152/77 H 99 Room Air Pain Intensity Left Ankle: Pain Intensity: 2 Transfer of Care Handoff Completed per policy Notes Mental Status: alert / awake / arousable Patient Amnestic to Procedure: Yes Nausea / Vomiting: adequately controlled Pain: adequately controlled Airway Patency, RR, SpO2: stable & adequate BP & HR: stable & adequate Hydration State: stable & adequate Neuraxial Anesthesia: was administered and sensory block is resolving Anesthetic Complications: no major complications apparent and Pt Satisfied with anesthetic care
[2025-06-10] MEDS ORDERED: NO NSAIDS SCH (12:52)
[2025-06-10] MEDS ORDERED: NALOXONE HCL 0.4 MG/1 ML VIAL/CARP IV PRN (12:52)
[2025-06-10] MEDS ORDERED: MAGNESIUM HYDROXIDE SUSP 30 ML UDC PO PRN (12:52)
[2025-06-10] MEDS ORDERED: METOCLOPRAMIDE HCL INJ 5 MG/ML 2 ML VIAL IV PRN (12:52)
[2025-06-10] MEDS ORDERED: ALUMINUM/MAGNESIUM SUSP 30 ML UDC PO PRN (12:52)
[2025-06-10] MEDS: SODIUM CHLORIDE 0.9% 1,000 ML IV SCH (14:02)
[2025-06-10] MEDS: ASCORBIC ACID 500 MG TAB PO SCH (16:49)
[2025-06-10] MEDS: TRANEXAMIC ACID / 0.7% NACL 1,000 MG/100 ML BAG IV SCH (17:00)
[2025-06-10] MEDS ORDERED: SENNA 8.6 MG TAB PO SCH (21:00)
[2025-06-10] MEDS: diphenhydrAMINE Capsule 25 MG CAP PO SCH (21:23)
[2025-06-10] MEDS: DOCUSATE SODIUM 100 MG CAP PO SCH (21:23)
[2025-06-10] MEDS: SENNA 8.6 MG TAB PO SCH (21:24)
[2025-06-10] MEDS: MELATONIN 3 MG TAB PO SCH (21:24)
[2025-06-10] MEDS: ASPIRIN 81 MG ECTAB PO SCH (21:24)
[2025-06-10] MEDS: EZETIMIBE 10 MG TAB PO SCH (21:25)
[2025-06-10] MEDS: HYDROmorphone INJ 0.5 MG/0.5 ML SYR IV PRN (22:54)
[2025-06-11 00:09] VITALS: RESP 16
[2025-06-11 04:12] VITALS: O2SAT 97
[2025-06-11 07:33] VITALS: BP 112/64; TEMP 97.7
[2025-06-11] MEDS: dexAMETHasone 10 MG in SYRINGE 0 ML IV SCH (07:47)
[2025-06-11 07:56] LABS: Hematocrit (blood only) 27.8 % (42.0-52.0); Hemoglobin 9.2 g/dl (14.0-18.0); Mean Corpuscular Hemoglobin 30.1 pg (25.0-34.0); Mean Corpuscular Volume 90.8 fL (80.0-100.0); Platelet Count 220 K/uL (130-400); RDW Standard Deviation 41.6 fL (36.4-46.3); Red Blood Count 3.06 M/uL (4.70-6.10); White Blood Count 15.36 K/ul (4.8-10.8)
[2025-06-11 08:15] LABS: Anion Gap 5.0 (3-11); Blood Urea Nitrogen 30.0 mg/dl (6-23); Calcium 8.1 mg/dl (8.6-10.3); Carbon Dioxide 20.0 mmol/L (21-32); Chloride 113.0 mmol/L (98-107); Creatinine Clr Calc Pharmacy 35.4 ml/min; Glucose 101.0 mg/dl (70-99(Fasting)); Potassium 4.9 mmol/L (3.5-5.1); Sodium 138.0 mmol/L (136-145)
--- NOTE | 2025-06-11 08:23 | Orthopedic Progress Note ---
Date of Service June 11, 2025 Assessment & Plan (1) Status post total left knee replacement: * Continue Current Treatment * Disposition: home, PT * Daily treatment: Physical Therapy/ Occupational Therapy per protocol * Weight bearing status: WBAT * Continue to monitor for ABLA * Pain control * DVT prophylaxis, ASA * Office/hospital f/u 2 weeks for progress check and staple/suture removal * Plan for discharge today pending PT/OT clearance Subjective .Active Problems: S/p left TKA POD 1 75 y/o male s/p left TKA. Doing well overall, pain managed and improved function. Denies fever/chills, chest pain/SOB, nausea/vomiting. Otherwise no complaints. Review of Systems All systems reviewed & are unremarkable except as noted in HPI & below. Physical Exam . * General: Alert and oriented, no acute distress * Constitutional: well-developed, well-nourished. * Respiratory: Normal respiratory effort, no distress * Gastrointestinal: No tenderness to palpation, no rigidity or guarding. * Skin: No rash or lesion. * Neurologic: Grossly normal * Musculoskeletal: Left knee surgical dressing CDI, not removed for exam. Otherwise no obvious deformity or overlying skin changes RLE. Diffuse TTP distal thigh and knee region. Otherwise no specific tenderness of proximal thigh, lower leg, foot/ankle. AROM knee flexion 100 degrees. AROM foot/ankle intact. Sensation intact plantar/dorsal foot. Brisk capillary refill. Results & Data Results & Data Laboratory Results . Diagnostic Findings . Knee X-Ray 06/10/25 11:32 XR knee LT 1 or 2V routine CLINICAL HISTORY: Surgical Post Op COMPARISON: None FINDINGS: Left knee prosthesis shows no hardware complication. There is expected soft tissue gas. Skin gennaro are present. IMPRESSION: Unremarkable postoperative exam. ACT 112: Negative or not required by law. Electronically signed by: Dada Sandoval M.D. 06/10/2025 11:53 AM PG Care Time/CCT Total # of Minutes Spent Total Time Spent with Patient: Total time spent is greater than 50% in coordination of care (as documented) at patient's floor/unit and/or counseling patient: Coding Level of Care Code 80233 Post Operative Follow-Up Diagnoses Status post total left knee replacement Z96.652
[2025-06-11] MEDS ORDERED: NON-FORMULARY MEDICATION (Glucos Sul 2kcl-Msm-Chond-C-Mn [Glucosamine Chondroitin] 550-30- PO SCH (09:00)
[2025-06-11] MEDS: MULTIVITAMIN TAB PO SCH (09:49)
[2025-06-11] MEDS: TAMSULOSIN HCL 0.4 MG CAP PO SCH (09:50)
[2025-06-11] MEDS: hydroCHLOROthiazide 25 MG TAB PO SCH (09:50)
[2025-06-11] MEDS: FAMOTIDINE 20 MG TAB PO SCH (09:53)
[2025-06-11 11:38] VITALS: PULSE 68
== END 2025-06-11 12:57 | disposition home health service (06) ==
LOC: ASU 06:42 → 3N 06:42